=== PATIENT | female | born 1980 | race Caucasian/White ===

== ENCOUNTER 2024-11-29 14:03 | Outpatient (REF) | payer BC, SELFPAY ==
--- NOTE | 2024-11-29 14:09 | EMG_ITS ---
Chief complaint: Pain in the right shoulder area, may radiate down with paresthesias on right hand. Reason for referral: Evaluate for radiculopathy versus Carpal Tunnel Syndrome Referred by: Luís FARR Procedure done: Right upper extremity NCS/EMG Precautions and/or limitations: None The limb temperature was monitored continuously and remained between 32-36 degrees C during the performance of the NCS. Nerve Conduction Studies Anti Sensory Summary Table ?Stim Site NR Onset (ms) Norm Onset (ms) Peak (ms) Norm Peak (ms) O-P Amp (?V) Norm O-P Amp Site1 Site2 Delta-0 (ms) Dist (cm) Benjamin (m/s) Norm Benjamin (m/s) Right Median Anti Sensory (2nd Digit) Wrist ? 2.5 3.1 <3.6 59.6 >10 Wrist 2nd Digit 2.5 14.0 56 Right Ulnar Anti Sensory (5th Digit) Wrist ? 2.2 3.0 <3.7 43.2 >15.0 Wrist 5th Digit 2.2 14.0 64 Motor Summary Table ?Stim Site NR Onset (ms) Norm Onset (ms) O-P Amp (mV) Norm O-P Amp iAmp (mV) Amp (1st) (%) Site1 Site2 Delta-0 (ms) Dist (cm) Benjamin (m/s) Norm Benjamin (m/s) Right Median Motor (Abd Poll Brev) Wrist ? 3.2 <3.9 8.6 >4.5 10.0 100.0 Elbow Wrist 3.4 18.5 54 >45 Elbow ? 6.6 7.7 9.0 89.5 Right Ulnar Motor (Abd Dig Minimi) Wrist ? 2.8 <3.0 10.7 >5 12.1 100.0 B Elbow Wrist 2.8 17.5 63 >45 B Elbow ? 5.6 10.4 12.0 97.2 A Elbow B Elbow 1.3 10.0 77 >45 A Elbow ? 6.9 10.2 11.8 95.3 Comparison Summary Table ?Stim Site NR Peak (ms) Norm Peak (ms) P-T Amp (?V) Site1 Site2 Delta-P (ms) Norm Delta (ms) Right Median/Radial Dig I Comparison (Digit 1 - 10cm) Median ? 2.4 <2.9 76.6 Median Radial 0.1 Radial ? 2.5 <2.8 82.0 EMG ?Side Muscle Nerve Root Ins Act Fibs Psw Amp Dur Poly Recrt Int Pat Comment Right 1stDorInt Ulnar C8-T1 Nml Nml Nml Nml Nml 0 Nml Complete Right FlexCarRad Median C6-7 Nml Nml Nml Nml Nml 0 Nml Complete Right Biceps Musculocut C5-6 Nml Nml Nml Nml Nml 0 Nml Complete Right Triceps Radial C6-7-8 Nml Nml Nml Nml Nml 0 Nml Complete Right Deltoid Axillary C5-6 Nml Nml Nml Nml Nml 0 Nml Complete Paraspinal EMG ?Side Muscle Nerve Root Ins Act Fibs Psw Comment Right Cervical Upper Rami Nml Nml Nml Right Cervical Mid Rami Nml Nml Nml Right Cervical Lower Rami Nml Nml Nml FINDINGS: All motor and sensory nerves tested showed normal latencies, amplitudes and conduction velocities. Concentric needle EMG was performed in selected muscles of the right upper extremity and cervical paraspinals. Study did not reveal signs of electric abnormalities as shown in the table above. IMPRESSION: 1. This is a normal study. 2. There is no electrodiagnostic evidence for median neuropathy, ulnar neuropathy, brachial plexopathy, or cervical radiculopathy. Thank you for your kind referral. Mayela Cordon MD, ENA Board Certified, [place] Board [employer] Medicine and Rehabilitation (ABPMR) Board Certified, [place] Board of Electrodiagnostic Medicine (ABEM) CODIN [id number] MTDD
--- OUTSIDE RECORDS SUMMARY | 2024-11-29 17:48 | XMS_ITS | Clinical Summary ---
Author Organization [facility] Address [address] [address] Phone Care Team Providers Care Photographic Platemaker Name Role Phone AmyAni Londonosawyer Chapman DO Primary Car e Provider Medications montelukast (SINGULAIR) 10 mg tablet Take 10 mg by mouth nightly at bedtime. Active polyethylene glycol (MIRALAX) 17 gram packet Take 17 g by mouth daily. Active pyRIDostigmine (MESTINON) 60 mg tablet TAKE 0.5 TABLETS (30 MG TOTAL) BY MOUTH 2 (TWO) TIMES A DAY FOR 3 DAYS, THEN TAKE 1 TAB 3 TIMES A DAY BY MOUTH 270 tablet 1 10/20/2024 Active Encounters Date Type Department Care Team Description 10/20/2024 Refill [facility] Neurology at [address] [address] Michael Manning MD, PhD Medication Refill 10/09/2024 11:30 AM EDT Telemedicine [facility] Neurology at [address] [address] Michael Manning MD, PhD Idiopathic autonomic neuropathy (Primary Dx) from Last 3 Months Social History Tobacco Use Types Packs/Day Years Used Date Smoking Tobacco: Never Assessed Education Answer Date Recorded Are you interested in more education? Not on jewel e 07/10/2022 Are you concerned about learning? Not on file 07/10/2022 No 07/10/2022 No 07/10/2022 Digital Access Answer Date Recorded No 08/11/2022 No 08/11/2022 No 08/11/2022 Reliable internet access at home? Not on file 08/11/2022 Device with a working camera? Not on file Comments Unknown Sex and Gender Information Value Date Recorded Sex Assigned at Female 12/20/2019 10:45 AM EDT Legal Sex Female 12:53 PM EST Gender Identity Female 12/20/2019 10:45 AM EDT Sexual Orientation Straight 12/20/2019 10 :45 AM EDT Last Filed Vital Signs Vital Sign Reading Time Taken Comments Blood Pressure 110/72 02/08/2023 8:43 AM EST Pulse 80 02/08/2023 8:43 AM EST Temperature - - Respiratory Rate - - Oxygen Saturation - - Inhaled Oxygen Concentration - - Weight 72.6 kg (160 lb) 10/10/2018 1:17 PM EDT Height 160 cm (5' 3 ) 10/10/2018 1:17 PM EDT Body Mass Index 28.34 10/10/2018 1:17 PM EDT Plan of Treatment Health Maintenance Due Date Last Done Comments Adult Td,Tdap Booster 1982 DEPRESSION SCREENING 1994 SMOKING Hx and SMOKELESS TOBACCO SCREENING 05/25/1995 HEPATITIS C SCREENING 2000 HIV ONE-TIME SCREENING (18-65 YEARS) 2000 PAP SMEAR 05/25/2003 MAMMOGRAM 2022 INFLUENZA VACCINE (#1) 2024 , 11/27/2019, 11/14/2019, Additional history exists COVID-19 VACCINE ( season) 2024 11/13/2020, 03/27/2020, 03/25/2020, Additional history exists MENINGOCOCCAL VACCINES (ACWY) Aged Out 12/16/2011 No longer eligible based on patient's age to complete this topic HEPATITIS A VACCINES Aged Out No long er eligible based on patient's age to complete this topic HIB VACCINES Aged Out No longer eligi ble based on patient's age to complete this topic MENINGOCOCCAL VACCINES (B) Aged Out N o longer eligible based on patient's age to complete this topic PNEUMOCOCCAL VACCINES (0-49 years) Aged Out No longer eligible based on patient's age to complete this topic Medical Devices Not on file Insurance OUT OF STATE POS [facility] OUT [facility] POS BLUE CROSS OUT OF STATE POS BLUE CROSS OUT OF STATE [place] [address] BLUE CROSS OUT OF STATE POS BLUE CROSS OUT OF STATE POS Care Teams Photographic Platemaker Relationship Specialty Start Date End Date Rochelle Schmid DO PCP - General Internal Medicine 01/25/23 Additional Source Comments The information contained in this document represents components of the legal health record. It is not the complete legal health record.[facility]
--- OUTSIDE RECORDS SUMMARY | 2024-11-29 17:48 | XMS_ITS | Clinical Summary ---
Author Organization [employer] Address [address] [place] [address] [address] [place] [address] Care Team Providers Care Software Maintenance Engineer Name Role Phone Unavailable Primary Care Provider Unavailabl e Social History Tobacco Use Types Packs/Day Years Used Date Smoking Tobacco: Never Assessed Comments Unknown Sex and Gender Information Value Date Recorded Sex Assigned at Female 01/12/2022 10:18 AM EDT Legal Sex Female 10:18 AM EDT Gender Identity Female 01/12/2022 10:18 AM EDT Sexual Orientation Straight 01/12/2022 10 :18 AM EDT Last Filed Vital Signs Vital Sign Reading Time Taken Comments Blood Pressure 150/90 04/14/2019 12:01 AM EST Pulse 88 04/14/2019 12:01 AM EST Temperature - - Respiratory Rate - - Oxygen Saturation - - Inhaled Oxygen Concentration - - Weight 65.3 kg (144 lb) 04/14/2019 12:01 AM EST Height 160 cm (5' 3 ) 04/14/2019 12:01 AM EST Body Mass Index 25.51 04/14/2019 12:01 AM EST Plan of Treatment Health Maintenance Due Date Last Done Comments Depression Screening 1982 Disability Screening 1982 Alcohol/Substance Use Screening 1994 Tobacco Screening 1994 Family Planning (PISQ) 1997 HPV Vaccines (1 - 3-dose series) 1997 Hepatitis B Vaccines (1 of 3 - 19+ 3-dose series) 2001 DTaP/Tdap/Td Vaccines (2 - Td or Tdap) 12/17/2021 12/18/2011, 03/29/2007 Mammogram 2022 COVID-19 Vaccine ( season) 2024 11/13/2020, 03/27/2020, 02/28/2020 Influenza Vaccine (#1) 2024 , 11/14/2019, 11/22/2017, Additional history exists Cervical Cancer Screening 12/27/2028 HPV/Cotest 12/27/2028 12/28/2023 Pap Smear 12/27/2028 12/28/2023, 04/15/2021 Zoster Vaccines (1 of 2) 2032 RSV Patients and Patients Aged 60 years or older (1 - 1-dose 75+ series) 2057 Pneumococcal Vaccine: Pediatrics (0 to 5 Years) and At-Risk Patients (6 to 49) Years Aged Out 03/29/2007 No longer eligible based on patient's age to complete this topic Hepatitis A Vaccines Aged Out 09/14/2011 No long er eligible based on patient's age to complete this topic Meningococcal Vaccine Aged Out 12/16/2011 No ruth lizet eligible based on patient's age to complete this topic HIB Vaccines Aged Out No longer eligi ble based on patient's age to complete this topic IPV Vaccines Aged Out No longer eligi ble based on patient's age to complete this topic Meningococcal B Vaccine Aged Out No l onger eligible based on patient's age to complete this topic RSV under 20 months Aged Out No longe r eligible based on patient's age to complete this topic Rotavirus Vaccines Aged Out No longer eligible based on patient's age to complete this topic Procedures Procedure Name Priority Date/Time Associated Diagnosis Comments PAP/HPV Routine 12/28/2023 12:00 AM EDT from Last 3 Months or Most Recently Relevant to Health Maintenance Results * PAP/HPV (12/28/2023 12:00 AM EDT) Pap Smear 1. NILM 1. NILM HPV Not Detected Undetected, Indeterminat e, Quantitative , Not Detected us Historical Provider HEALTH MAINTENANCE Edited Result - Final from Last 3 Months or Most Recently Relevant to Health Maintenance
--- OUTSIDE RECORDS SUMMARY | 2024-11-29 17:48 | XMS_ITS | Encounter Summary ---
Author Organization [employer] Address [address] [facility] [address] [place] [address] Care Team Providers Care Real Estate Assessor Name Role Phone Unavailable Primary Care Provider Unavailabl e Encounter Details Date Type Department Care Team (Late st Contact Info) Description 02/24/2024 Orders Only [facility] MEDICINE [address] [place] [address] Mary Castillo Social History Tobacco Use Types Packs/Day Years Used Date Smoking Tobacco: Never Assessed Comments Unknown Sex and Gender Information Value Date Recorded Sex Assigned at Female 01/12/2022 10:18 AM EDT Legal Sex Female 10:18 AM EDT Gender Identity Female 01/12/2022 10:18 AM EDT Sexual Orientation Straight 01/12/2022 10 :18 AM EDT documented as of this encounter Plan of Treatment Not on file documented as of this encounter Procedures Procedure Name Priority Date/Time Associated Diagnosis Comments PAP/HPV Routine 12/28/2023 12:00 AM EDT documented in this encounter Results * HM PAP/HPV (12/28/2023 12:00 AM EDT) Pap Smear 1. NILM 1. NILM HPV Not Detected Undetected, Indeterminat e, Quantitative , Not Detected us Historical Provider HEALTH MAINTENANCE Edited Result - Final documented in this encounter Visit Diagnoses Not on filedocumented in this encounter
--- OUTSIDE RECORDS SUMMARY | 2024-11-29 17:48 | XMS_ITS | Encounter Summary ---
Author Organization [facility] Address [address] [place] [address] Phone Care Team Providers Care Onion Topper Name Role Phone NeetuvickyRochelle Londono DO Primary Care Pro vider Encounter Details Date Type Department Care Team (Late Contact Info) Description 11/06/2021 Documentation Only [facility] [address] [place] [phone] Gianna Benitez MD Social History Tobacco Use Types Packs/Day Years Used Date Smoking Tobacco: Never Smokeless Tobacco: Never Alcohol Use Standard Drinks/Week Comments Yes 0 (1 standard drink = 0.6 oz pure alcohol) Alcoholic Drinks/day: Occasional social drink Comments Unknown Sex and Gender Information Value Date Recorded Sex Assigned at Female 12/15/2020 7:06 AM EDT Legal Sex Female 4:51 PM EST Gender Identity Female 12/15/2020 7:06 AM EDT Sexual Orientation Not on file COVID-19 Exposure Response Date Recorded In the last 10 days, have yo u been in contact with someone who was confirmed or suspected to have Coronavirus/COVID-19? No / Unsure 10/22/2021 3:55 PM EDT documented as of this encounter Plan of Treatment Upcoming Encounters Date Type Department Care Team (Late Contact Info) Description 10/16/2025 10:00 AM EDT [facility] [address] [address] Reagan Armstrong MD [address] [phone] documented as of this encounter Visit Diagnoses Not on filedocumented in this encounter Care Teams Onion Topper Relationship Specialty Start Date End Date Rochelle Schmid DO [address] [place] [address] PCP - General Internal Medicine 05/13/21 documented as of this encounter
--- OUTSIDE RECORDS SUMMARY | 2024-11-29 17:48 | XMS_ITS | Clinical Summary ---
Author Organization [facility] Address [address] [address] Phone Care Team Providers Care Steam Boiler Fireman Name Role Phone Rochelle Schmid DO Primary Care Pro vider Allergies Active Allergy Reactions Criticality Noted Date Comments Bee Venom Anaphylaxis High 12/16/2020 Latex Itching,Swelling 12/16/2020 Penicillins Other (see comments) 04/30/2020 Tramadol Hives 04/30/2020 Medications EPINEPHrine (EPIPEN) 0.3 MG/0.3ML injection syringe if needed Active polyethylene glycol (GLYCOLAX) 17 GM/SCOOP powder Take 17 g by mouth 8 Active w/o A Vit-Fe Fum-FA (PRENATA PO) Take by mouth Act renan pyridoxine (VITAMIN B-6) 25 MG tablet Take 25 mg by mouth in the morning and 25 mg at noon and 25 mg in the evening. Active Doxylamine Succinate, Sleep, (UNISOM PO) Take by mouth every night Active labetalol (NORMODYNE) 200 MG tablet Take 1 tablet (200 mg total) by mouth in the morning and 1 tablet (200 mg total) at noon and 1 tablet (200 mg total) in the evening. 270 tablet 3 4 Active Additional Information Patient not taking.Reported on 10/16/2024 butalbital-acet aminophen-caffe ine (FIORICET, ESGIC) 50-325-40 MG per tablet TAKE 1 TABLET BY MOUTH TWICE A DAY NEEDED FOR HEADACHE 5 Active pyridostigmine (MESTINON) 60 MG tablet Take 60 mg by mouth in the morning and 60 mg in the evening and 60 mg before bedtime. Active Active Problems Problem Noted Date Diagnosed Date Non-rheumatic mitral regurgitation 03/16/2023 03/16/2023 Hypertension in , antepartum 12/15/2022 Other iron deficiency anemia 05/13/2021 Coronary arteriosclerosis 04/30/2020 Hypertension 04/30/2020 Supraventricular tachycardia 04/30/2020 Segmental autonomic dysfunction 01/25/2020 Comments Yes Resolved Problems Problem Noted Date Diagnosed Date Resolved Date Pre-existing hypertension co mplicating AND/OR reason for care during 03/16/2023 03/16/2023 024 Multigravida of advanced maternal age 0103/16/202304/202309/12/2023 Mild intermittent asthma 03/16/2023 03/16/2023 History of cardiac arrhythmia 03/16/2023 03/16/2023 09/12/2023 Electrocardiogram abnormal 03/16/2023 03/16/2023 0 09/12/2023 Disorder of the autonomic nervous system 03/16/2023 03/16/2023 09/12/2023 Preoperative cardiovascular examination 03/16/2023 0 03/16/2023 09/12/2023 Slow transit constipation 05/17/2021 FH: Stomach cancer 05/17/2021 Cervical radiculitis 05/08/2021 024 Neck pain 05/08/2021 09/12/2023 Asthma 12/16/2020 12/04/2021 Migraine 12/16/2020 12/04/2021 Insomnia 01/25/2020 12/04/2021 Anemia 01/25/2020 09/12/2023 Encounters Date Type Department Care Team Description 10/16/2024 11:40 AM EDT Office Visit [facility] [address] [address] Reagan Armstrong MD Hypertension (Primary Dx); Unspecified maternal hypertension, third trimester; Other supraventricular tachycardia (HCC) 10/05/2024 Office Communication [facility] [address] [address] Reagan Armstrong MD from Last 3 Months Immunizations Immunization Administration Dates Next Due Influenza TIV (IM) 11/22/2017 Influenza, Quadrivalent, With Preservative 11/13,11/14/2019 SARS-CoV-2, Unspecified 11/13/2020,03/27/2020, Family History Medical History Relation Comments Cancer Father prostate, brain, stomach Hypertension Father Dementia Paternal Grandmother Relation Status Comments Father Alive Mother Alive Paternal Grandmother Social History Tobacco Use Types Packs/Day Years Used Date Smoking Tobacco: Never Smokeless Tobacco: Never Tobacco Cessation:Counseling Given: Not Answered Alcohol Use Standard Drinks/Week Comments Yes 0 (1 standard drink = 0.6 oz pur e alcohol) Rare Comments Yes Sex and Gender Information Value Date Recorded Sex Assigned at Female 12/15/2020 7:06 AM EDT Legal Sex Female 4:51 PM EST Gender Identity Female 12/15/2020 7:06 AM EDT Sexual Orientation Not on file Last Filed Vital Signs Vital Sign Reading Time Taken Comments Blood Pressure 120/78 10/16/2024 11:50 AM EDT Pulse 74 10/16/2024 11:50 AM EDT Temperature - - Respiratory Rate - - Oxygen Saturation 98% 10/16/2024 11:50 AM EDT Inhaled Oxygen Concentration - - Weight 73.5 kg (162 lb) 10/16/2024 11:50 AM EDT Height 162.6 cm (5' 4 ) 09/13/2023 11:38 AM EDT Body Mass Index 27.81 09/13/2023 11:38 AM EDT Plan of Treatment Upcoming Encounters Date Type Department Care Team (Late st Contact Info) Description 10/16/2025 10:00 AM EDT Office Visit [facility] [address] [address] Reagan Armstrong MD [address] [address] Health Maintenance Due Date Last Done Comments Hepatitis B Vaccine (1 of 3 - 19+ 3-dose series) 2001 Pneumococcal Vaccine: Peds ( 0 to 5 Years) and At-Risk Patients (6 to 49 Years) (1 of 2 - PCV) 2001 Influenza Vaccine (#1) 2024 , 11/27/2019, 11/14/2019, Additional history exists Insurance [facility] Care Teams Steam Boiler Fireman Relationship Specialty Start Date End Date Rochelle Schmid DO [address] [place] [address] PCP - General Internal Medicine 05/13/21
--- OUTSIDE RECORDS SUMMARY | 2024-11-29 17:48 | XMS_ITS | Encounter Summary ---
Author Organization [facility] Address [address] [place] [address] Phone Care Team Providers Care Game Trapper Name Role Phone BrennenmarcusRochelle Byers DO Primary Care Pro vider Encounter Details Date Type Department Care Team (Late st Contact Info) Description 07/07/2021 Telephone [facility] [address] [place] [address] Gianna Benitez MD Social History Tobacco Use [...] Exposure Response Date Recorded In the last month, have you been in contact with someone who was confirmed or suspected to have Coronavirus / COVID-19? Unable to assess 07/10/2021 2:08 PM EDT documented as of this encounter Miscellaneous Notes * Telephone Encounter - Gianna Benitez MD - 07/08/2021 12:46 PM EDT Called and made th change to labet * Telephone Encounter - Deb Leiva - 07/08/2021 8:51 AM EDT See message below * Telephone Encounter - Geri Yu - 07/07/2021 2:31 PM EDT Pt called, she is trying to get and her crisis clinician would like her to switch to labetalol instead of hydralazine . Please advise Thank you documented in this encounter Plan of Treatment Upcoming Encounters Date Type Department Care Team (Late st Contact Info) Description 10/16/2025 10:00 AM EDT [facility] [address] [phone] Reagan Armstrong MD [address] [address] documented as of this encounter Visit Diagnoses Not on filedocumented in this encounter Care Teams Game Trapper Relationship Specialty Start Date End Date Rochelle Schmid DO [address] [place] [address] PCP - General Internal Medicine 05/13/21 documented as of this encounter
--- OUTSIDE RECORDS SUMMARY | 2024-11-29 17:48 | XMS_ITS | Patient Health Record ---
Author Organization [facility] Address [address] [place] [address] Care Team Providers Care Pattern Keeper Name Role Phone Chet Fields Primary Care Provider Unavail able Hayden Maria Unavailable [phone] Allergies Allergen (clinical drug ingredient) Drug/Non Drug Allergy documented on EMR Reaction Allergy Type Onset Date Status Penicillin Unknown Drug Allergy Active Latex Unknown Drug Allergy Active Reason For Referral No Information Medications Medication SIG (Take, Route, Frequency, Duration) Notes Start Date End Date Status Fioricet PRN Active Cryselle-28 0.3-30 MG-MCG 1 tablet Orally Once a day Active Cardizem LA 240 MG 1 tablet at the same time each day Orally Once a day Active Zofran PRN Active ZyrTEC Allergy 10 MG 1 tablet Orally Onc e a day Active vitamin D Active PriLOSEC OTC 20 MG 1 tablet Orally Once a day Not-Taking Singulair 10 MG 1 tablet Orally Once a day Active Losartan Potassium 50 MG 1 tablet Orally Once a day Active Social History Tobacco Use: Social History Observation Description Date Details (start date - stop date) Never Smoker NA - NA Tobacco Use/Smoking Question Answer Notes Are you a: nonsmoker Additional Findings: Tobacco Non-User Current no n-smoker Alcohol Screen Question Answer Notes Did you have a drink containing alcohol in the p ast year? No Points 0 Interpretation Negative Tobacco use other than smoking: Question Answer Notes Are you an other tobacco user? No Plan Of Treatment No Information Insurance Providers Payer Name Payer Address Payer Phone Subscriber Number Group Number Insured Name Patient Relationship to Insured Coverage Start Date Coverage End Date [facility] [address] [place] [address] [id number] Self - patient is the insured 9 Medical (General) History Medical History History ICD Code asthma Back,Hip,and Knee pain High blood pressure Chicken pox Headaches/Migraines chronic sinusitis Autonomic dysfunction Neuropathy Surgical History Surgery Date(Month/Year) laproscopy tonsillectomy
--- OUTSIDE RECORDS SUMMARY | 2024-11-29 17:48 | XMS_ITS | Encounter Summary ---
Author Organization [facility] Address [address] [place] [address] Phone Care Team Providers Care Cage Operator Name Role Phone Rochelle Schmid DO Primary Care Pro vider Encounter Details Date Type Department Care Team (Late st Contact Info) Description 08/18/2021 Telephone [facility] [address] [place] [address] Gianna Benitez MD Social History [...] AM EDT Sexual Orientation Not on file documented as of this encounter Miscellaneous Notes * Telephone Encounter - Geri Yu - 08/18/2021 9:36 AM EDT Pt called, she noticed her bp has been running high. When she started labetolol lizet bp has low around 104 and now its been around 150 165. She would like to speak with you for guidance Please call her back at [phone] Thank you documented in this encounter Plan of Treatment Upcoming Encounters Date Type Department Care Team (Late st Contact Info) Description 10/16/2025 10:00 AM EDT Office Visit [facility] [address] [phone] Reagan Armstrong MD [address] [address] documented as of this encounter Visit Diagnoses Not on filedocumented in this encounter Care Teams Cage Operator Relationship Specialty Start Date End Date Rochelle Schmid DO [address] [place] [address] PCP - General Internal Medicine 05/13/21 documented as of this encounter
--- OUTSIDE RECORDS SUMMARY | 2024-11-29 17:48 | XMS_ITS | Clinical Summary ---
Author Organization 175 [facility] Address [address] [place] [address] Phone Care Team Providers Care Ripening Room Hand Name Role Phone Parris Mcdonald DO Primary Care Provider Allergies Active Allergy Reactions Criticality Noted Date Comments Bee Venom Protein (Honey Bee) Anaphylaxis High 05/16 Latex Itching,Swelling 12/16/2020 Penicillins 01/25/2020 Tramadol 01/25/2020 Medications fluticasone furoate (Arnuity Ellipta) 100 mcg/actuation blister with device inhaler Inhale 100 mcg into the lungs daily for 90 days. This medication has inhaler steroid: Rinse mouth with water and expectorate after each dose to prevent oral/esophageal candidiasis or fungal infection. 11/30/19 24 Active montelukast sodium (MONTELUKAST ORAL) Take by mouth. Activ e labetaloL (NORMODYNE) 200 mg tablet Take 1 Tablet by mouth 3 times daily. 04/12/19 24 Active medroxyPROGEST ERone 150 mg/mL injection INJECT 1 MILLILITER (150 MG) BY INTRAMUSCULAR ROUTE EVERY 3 MONTHS FOR 90 DAYS 06/22/19 24 Active albuterol HFA (PROAIR HFA ; PROVENTIL HFA ; VENTOLIN HFA) 90 mcg/actuation inhaler INHALE 2 PUFFS INTO THE LUNGS EVERY 4 HOURS NEEDED FOR 30 DAYS 03/26/19 24 Active EPINEPHrine (EpiPen 2-Christian) 0.3 mg/0.3 mL injection if needed Active doxylamine (UNISOM) 25 mg tablet Take 25 mg by mouth at bedtime. Active no115/iron/fol ic acid ( 19 ORAL) Take by mouth daily. Active polyethylene glycol (PEG) 17 gram/dose oral powder Take by mouth. Act renan albuterol HFA (PROAIR HFA ; PROVENTIL HFA ; VENTOLIN HFA) 90 mcg/actuation inhalerIndicat ions:Mild persistent asthma, unspecified whether complicated Inhale 2 puffs by mouth every 6 (six) hours if needed for wheezing or shortness of breath. 3 each 3 02/18/20 24 2024 Active budesonide (Pulmicort Flexhaler) 90 mcg/actuation inhaler Inhale 2 puffs by mouth 2 (two) times a day. 3 each 3 05/17/19 25 2025 Active Additional Information Patient not taking.Reported on 08/25/2024 cyanocobalamin (VITAMIN B-12) 250 mcg tablet Take 1 tablet (250 mcg total) by mouth 1 (one) time each day. Active pyRIDostigmine (MESTINON) 60 mg tablet Take by mouth 4 (four) times a day. Active magnesium citrate solution Take by mouth 1 (one) time. Active mometasone HFA (Asmanex HFA) 100 mcg/actuation HFA aerosol inhaler inhalerIndicat ions:Mild persistent asthma, unspecified whether complicated Inhale 2 puffs by mouth 2 (two) times a day. 1 each 5 11/25/19 Active mometasone HFA (Asmanex HFA) 100 mcg/actuation HFA aerosol inhaler inhalerIndicat ions:Mild persistent asthma, unspecified whether complicated Inhale 2 puffs by mouth 2 (two) times a day. 3 each 1 08/23/19 25 2024 Discontinued mometasone HFA (Asmanex HFA) 100 mcg/actuation HFA aerosol inhaler inhalerIndicat ions:Mild persistent asthma, unspecified whether complicated Inhale 2 puffs by mouth 2 (two) times a day. 1 each 5 11/17/19 25 2024 Discontinued Active Problems Problem Noted Date Diagnosed Date Advanced maternal age in multigravida 04/20/2024 Asthma 04/20/2024 Migraine 04/20/2024 Neck pain 04/20/2024 Pre-existing hypertension during 04/20 Radiculitis of right cervical region 04/20/2024 Non-rheumatic mitral regurgitation 03/16/2023 Slow transit constipation 05/17/2021 Coronary arteriosclerosis 04/30/2020 Supraventricular tachycardia ([facility] V24) 04/30 Segmental autonomic dysfunction 01/25/2020 Hypertensive disorder 01/25/2020 Insomnia 01/25/2020 Absolute anemia 01/25/2020 Dystonia 09/20/2013 Peripheral neuropathy 03/09/2012 Dysautonomia ([facility] V24, [facility] V28) 06/03/19 12 Encounters Date Type Department Care Team Description 10/12/2024 2:15 PM EDT Office Visit Orthopedic Surgery [facility] [address] [facility] [address] [place] [phone] Tomer Maria, DPM Plantar fascial fibromatosis (Primary Dx) 10/05/2024 2:30 PM EDT Ancillary Procedure [facility] [address] [place] [phone] Leg swelling; HERNANDES (dyspnea on exertion) 09/18/2024 2:30 PM EDT Office Visit Orthopedic Surgery [facility] [address] [facility] [address] [place] [phone] Valerie Colon, PA Wrist tendonitis (Primary Dx) 09/06/2024 3:06 PM EDT - 09/06/2024 11:59 PM EDT Hospital Encounter [facility] MRI [address] [place] [phone] Chronic pain of right wrist Discharge Disposition: Home or Self Care from Last 3 Months Immunizations Name Administration Dates Next Due Influenza Quadravalent, MDCK , 0.5ml, preservative free (Flucelvax) 6mo and older 11/27/2019 Influenza Quadrivalent, 0.5m l, preservative free (Fluarix; FluLaval; Fluzone) ages 6mo and older (Afluria) 3yo and older 12/21/2018,12/09/2017 Influenza Quadrivalent, with preservative (Fluzone; Afluria) 6mo and older 11/13/2020,11/14/2019,01/04/2017 Influenza trivalent, with pr eservative (Fluzone; Afluria) 6mo and older 11/22/2017,01/03/2016,12/16/2011 Meningococcal MCV4P 12/16/2011 SARS-COV-2 (COVID-19) Vaccine, Unspecified 11/13,03/27/2020,02/28/2020 Tdap Tetanus diptheria acell ular pertussis (Boostrix; Adacel) 7yo and older 03/01/2023 Surgical History Surgery Date Site/Laterality Comments KNEE SURGERY PROCEDURE: HISTORICAL KNEE SURGERY; COMMENT: right knee TONSILLECTOMY ADENOIDECTOMY, BILATERAL MYRINGOTOMY AND TUBES PROCEDURE: NE TONSILLECTOMY & ADENOIDECTOMY <AGE 12 CARDIAC CATHETERIZATION PROCEDURE: HISTORICAL CARDIAC CATH COLONOSCOPY PROCEDURE: HISTORICAL COLONOSCOPY Medical History Medical History Date Comments Ingrown toenail DX:Ingrown toena il Asthma DX:Asthma Essential hypertension DX:Essent ial hypertension Irritable bowel syndrome DX:Irri table bowel syndrome Family History Medical History Relation Name Comments Hypertension Father Other: cancer Father Relation Name Status Comments Father Social History Tobacco Use Types Packs/Day Years Used Date Smoking Tobacco: Never Smokeless Tobacco: Never Alcohol Use Standard Drinks/Week Comments Yes 0 (1 standard drink = 0.6 oz pur e alcohol) Comments Unknown Sex and Gender Information Value Date Recorded Sex Assigned at Not on file Legal Sex Female 9:31 PM EDT Gender Identity Not on file Sexual Orientation Not on file Obstetrics History Last Filed Vital Signs Vital Sign Reading Time Taken Comments Blood Pressure 130/80 10/05/2024 2:51 PM EDT Pulse 66 02/18/2024 1:13 PM EST Temperature 36.3 C (97.3 F) 02/18/2024 1:13 PM EST Respiratory Rate 20 02/18/2024 1:13 PM EST Oxygen Saturation 100% 02/18/2024 1:13 PM EST Inhaled Oxygen Concentration - - Weight 72.1 kg (159 lb) 10/12/2024 2:38 PM EDT Height 160 cm (5' 2.99 ) 10/12/2024 2:38 PM EDT Body Mass Index 28.17 10/12/2024 2:38 PM EDT Plan of Treatment Health Maintenance Due Date Last Done Comments Hepatitis B Vaccines (1 of 3 - 19+ 3-dose series) 2001 Cervical Cancer Screening: Pap Smear 05/25/2003 Pneumococcal Vaccine: Pediatrics (0 to 5 Years) and At-Risk Patients (6 to 49 Years) (2 of 2 - PCV) 03/29/2008 03/29/2007 Cholesterol Screening (Lipid Panel) 08/01/2021 HIV Screening 08/01/2021 Hepatitis C Screening 08/01/2021 Social Influencers of Health Screening 08/01/2021 Breast Cancer Screening 07/15/2022 07/15/2020 Depression Screening 03/15/2024 COVID-19 Vaccine ( season) 2024 12/17/2020, 11/13/2020, 03/27/2020, Additional history exists Influenza Vaccine (#1) 2024 , 11/27/2019, 11/14/2019, Additional history exists Hypertension/CHF/CAD Annual BMP Blood Test 02/13/2025 02/14/2024 DTaP,Tdap,and Td Vaccines (4 - Td or Tdap) 03/01/2033 03/01/2023, 12/18/2011, 03/29/2007 Hepatitis A Vaccines Aged Out 09/14/2011 No long er eligible based on patient's age to complete this topic Meningococcal ACWY Vaccine Aged Out 12/16/2011 N o longer eligible based on patient's age to complete this topic HIB Vaccines Aged Out No longer eligi ble based on patient's age to complete this topic HPV Vaccines Aged Out No longer eligi ble based on patient's age to complete this topic IPV Vaccines Aged Out No longer eligi ble based on patient's age to complete this topic MMR Vaccines Aged Out No longer eligi ble based on patient's age to complete this topic Meningococcal B Vaccine Aged Out No l onger eligible based on patient's age to complete this topic RSV Immunization Patients Under 20 months Aged Out No longer eligible based on patient's age to complete this topic Varicella Vaccines Aged Out No longer eligible based on patient's age to complete this topic Procedures Procedure Name Priority Date/Time Associated Diagnosis Comments TRANSTHORACIC ECHOCARDIOGRAM (TTE) COMPLETE Routine 10/05/2024 2:52 PM EDT Leg swelling HERNANDES (dyspnea on exertion) NE INJECTION SINGLE TENDON SHEATH OR LIGAMENT APONEUROSIS Routine 09/18/2024 2:30 PM EDT Wrist tendonitis MR WRIST WO CONTRAST RIGHT Routine 09/06/2024 4:09 PM EDT Chronic pain of right wrist COMPREHENSIVE METABOLIC PANEL Routine 02/14/2024 3:41 PM EST Chronic fatigue PAT SCREENING DIGITAL Routine 07/15/2020 4:05 PM EDT Encounter for screening mammogram for malignant neoplasm of breast from Last 3 Months or Most Recently Relevant to Health Maintenance Results * (ABNORMAL) TRANSTHORACIC ECHOCARDIOGRAM (TTE) COMPLETE (10/05/2024 2:52 PM EDT) Left Atrium Minor [place] 5.0 cm CV PACS Left Atrium Major [place] 5.3 cm CV PACS LA Area Sys (A2C) 18 cm2 CV PACS LA Area Sys (A4C) 19 cm2 CV PACS LA Volume (BP) 51 mL CV PACS RA Area 16.2 cm2 CV PACS RA 2D Volume 41 mL CV PACS AV Mean Gradient 6 mmHg CV PACS Ao VTI 32.0 cm CV PACS AV Peak Benjamin 1.7 m/s CV PACS AV Peak Gradient 11 mmHg CV PACS AV Area Continuity Equation 2.7 cm2 CV PACS AV Area Peak Velocity 2.5 cm2 CV PACS Aortic Sinus Valsalva 3.2 cm CV PACS Ascending Aorta 3.1 cm CV PACS IVC Proximal 1.0 cm CV PACS IVSD 0.8 0.6 - 0.9 cm CV PACS LVIDD 4.5 3.8 - 5.2 cm CV PACS LVIDS 2.9 2.2 - 3.5 cm CV PACS LVOT Diameter 2.0 cm CV PACS LVOT Mean Grad 3 mmHg CV PACS LVOT Peak VTI 27.0 cm CV PACS LVOT Mean Benjamin 0.9 m/s CV PACS LVOT Peak Benjamin 1.3 m/s CV PACS LVOT Peak Gradient 7 mmHg CV PACS LVPWD 0.9 0.6 - 0.9 cm CV PACS MV E' Tissue Velocity Lateral 11 cm/s CV PACS MV E' Tissue Velocity Septal 9 cm/s CV PACS LVOT Area 3.1 cm2 CV PACS LVOT Stroke Volume 85 mL CV PACS E Wave Deceleration Time 215 119 - 242 ms CV PACS MV Peak A Benjamin 0.60 m/s CV PACS MV Peak E Benjamin 0.90 m/s CV PACS PV Acceleration Time 102 ms CV PACS PV Acceleration Time 102 ms CV PACS PV Peak Velocity 1.2 m/s CV PACS PV Peak Gradient 5 mmHg CV PACS RV Diastolic Basal Dimension 3.5 2.5 - 4.1 cm CV PACS RV S' 15 cm/s CV PACS TAPSE 24 mm CV PACS E/E' Ratio Septal 10 CV PACS E/E' Ratio Averaged 9 CV PACS LVOT Stroke Index 0 mL/m2 CV PACS Relative Wall Thickness ratio 0.38 0.22 - 0.42 CV PACS LVOT:AV VTI Index 0.84 CV PACS FS 36 % CV PACS LV Mass 2D 121 66 - 150 g CV PACS Ascending Aorta Index 1.77 cm/m2 CV PACS LVOT flow 283 mL/s CV PACS RA 2D Volume Index 23 15 - 27 mL/m2 CV PACS EMILY Index (VTI) 1.51 cm2/m2 CV PACS EMILY Index (Pk Benjamin) 1.43 cm2/m2 CV PACS LVIDD Index 2.57 cm/m2 CV PACS LVIDS Index 1.66 cm/m2 CV PACS AV Velocity Ratio 0.80 CV PACS E/A Ratio 1.5 0.8 - 2.0 CV PACS E/E' Ratio Lateral 8 CV PACS LA Volume Index (BP) 28 mL/m2 CV PACS LV Mass Index 2D 70 44 - 88 g/m2 CV PACS BSA 1.79 m2 CV PACS Est. RA Pressure 3 mmHg CV PACS LVOT Cardiac Output 0.0 L/min CV PACS LVOT Cardiac Index 4.1 L/min/m2 CV PACS RV Free Wall Peak S' 15 cm/s CV PACS RA Major [place] 5.2 cm CV PACS RA Major [place] Index 3.0(A) 2.2 - 2.8 cm/m2 CV PACS MV PHT 62 ms CV PACS AV Area 2D 2.5 cm2 CV PACS EMILY Index (2D) 1.43 cm2/m2 CV PACS Inferior Vena Cava Diameter At Expiration 1.0 cm CV PACS IVC Expiration Index 0.57 cm/m2 CV PACS AV Area Index 1.4 CV PACS TR Peak Velocity 2.00 m/s CV PACS Right Ventricular Peak Systolic Pressure 19 mmHg CV PACS TR Peak Gradient 16 mmHg CV PACS Anatomical Region Laterality Modality Ultrasound Narrative 10/17/2024 3:56 PM EDT 1. Normal biventricular size and systolic function. Normal left ventricular regional wall motion with an ejection fraction of 60 to 65%. 2. No hemodynamically significant valve disease. 3. Normal left ventricular diastolic function. Normal pulmonary artery systolic pressure. Technically adequate, 2D, M-mode, and Doppler echocardiogram without significant pathologic findings. Left Ventricle Left ventricle cavity size is normal. Wall thickness is normal. Systolic function is normal with an ejection fraction of 60-65%. There are no regional LV wall motion abnormalities. There is no diastolic dysfunction. Right Ventricle Right ventricle cavity appears normal. Systolic function is normal. Left Atrium Left atrium volume index is normal. Right Atrium Right atrium cavity is normal. IVC/SVC RA pressures is estimated to be 3 mmHg (IVC diameter <21 mm and decreases >50% during inspiration). Mitral Valve The leaflets exhibit normal excursion. There is trace regurgitation. There is no evidence of mitral valve stenosis. Tricuspid Valve The leaflets exhibit normal excursion. There is trace regurgitation. The right ventricular systolic pressure is normal. The RVSP is estimated at 19 mmHg. Aortic Valve The aortic valve is trileaflet. There is trace regurgitation. There is no evidence of aortic valve stenosis. Pulmonic Valve Visualized portions of the pulmonic valve appear normal. There is trace pulmonic valve regurgitation. Ascending Aorta The aorta appears normal in size. Pericardium Pericardium appears normal. Study Details Overall the study quality was adequate. Rochelle Schmid DO CV ECHO PROCEDURE S Final Result * NE INJECTION SINGLE TENDON SHEATH OR LIGAMENT APONEUROSIS (09/18/2024 2:30 PM EDT) Valerie Mckeon PA - 09/18/2024 2:30 PM EDT CHIKA Barker 09/18/2024 5:51 PM Hand / UE Inj/Asp: R extensor compartment 6 for tendonitis Indications: pain Details: 25 G needle, dorsal approach Medications: 4 mg dexAMETHasone 4 mg/mL; 0.5 mL lidocaine 1 % Informed Consent: Site: Ecu tendon sheath Laterality: Right Relevant images/test results available and reviewed: yes Health status cleared: Yes Procedure/treatment, purpose, treatment alternatives, risks/potential complications and benefits explained: yes Risk/complications/benefits details: Risks of infection, thinning of the skin and temporary skin discoloration discussed. Discussed risks of temporary increased pain after injection and swelling and mild redness at injection site for couple days. Explained occasionally cortisone injection can cause facial flushing temporarily. Benefits pain management. For postop injection pain ice, Tylenol and/or NSAIDs if patient can take Patient questions answered: yes Patient agrees, verbalizes understanding, and wants to proceed: yes Consent given by: Patient Pre-procedure timeout performed: yes us Valerie FARR IN CLINIC/BEDSIDE ORDERABLES Final Result * MR Wrist wo Contrast Right (09/06/2024 4:09 PM EDT) Anatomical Region Laterality Modality Upper Extremities, Wrist Right Magneti c Resonance 09/06/2024 4:36 PM EDT Impressions 09/06/2024 4:51 PM EDT ECU tendinopathy. Mild degenerative changes of the 1st carpometacarpal joint. Degenerative signal in the dorsal and volar radioulnar ligaments without a tear. Small amount of fluid in the distal radioulnar joint. -------- FINAL REPORT -------- Dictated By: Jason Stevenson Dictated Date: 09/06/2024 16:36 ET Assigned Physician: Jason Stevenson Reviewed and Electronically Signed By: Jason Stevenson Signed Date: 09/06/2024 16:51 ET Workstation ID: [id number] Transcribed By: Self Edit Transcribed Date: 09/06/2024 16:36 ET Narrative 09/06/2024 4:51 PM EDT PROCEDURE: MRI of the right wrist without intravenous contrast. HISTORY: Chronic right wrist pain evaluate TFCC, DRUJ scapholunate ligament. COMPARISON: Radiographs dated 06/05/2022. TECHNIQUE: Multiplanar multisequence MRI of the right wrist without intravenous contrast administration. FINDINGS: The articular disc of the triangle fibrocartilage complex is intact. There is mildly increased signal in the dorsal and volar radioulnar ligaments, but the ligaments appear intact. The scapholunate and lunotriquetral ligament are normal. Mild degenerative changes of the 1st carpometacarpal joint with a small focus of subchondral marrow signal of the bases of the 1st metacarpal. Alignment is normal. The flexor tendons are normal. There is ECU tendinopathy at the level of the proximal carpal row. No soft tissue mass or fluid collection. The regional neurovascular structures are normal. Procedure Note Jason Stevenson MD - 09/06/2024 PROCEDURE: MRI of the right wrist without intravenous contrast. HISTORY: Chronic right wrist pain evaluate TFCC, DRUJ scapholunateligament. COMPARISON: Radiographs dated 06/05/2022. TECHNIQUE: Multiplanar multisequence MRI of the right wrist withoutintravenous contrast administration. FINDINGS: The articular disc of the triangle fibrocartilage complex is intact.There is mildly increased signal in the dorsal and volar radioulnarligaments, but the ligaments appear intact. The scapholunate and lunotriquetral ligament are normal. Mild degenerative changes of the 1st carpometacarpal joint with a smallfocus of subchondral marrow signal of the bases of the 1st metacarpal.Alignment is normal. The flexor tendons are normal. There is ECU tendinopathy at the level ofthe proximal carpal row. No soft tissue mass or fluid collection. The regional neurovascular structures are normal. IMPRESSION: ECU tendinopathy. Mild degenerative changes of the 1st carpometacarpal joint. Degenerative signal in the dorsal and volar radioulnar ligaments without atear. Small amount of fluid in the distal radioulnar joint. -------- FINAL REPORT -------- Dictated By: Jason Stevenson Dictated Date: 09/06/2024 16:36 ET Assigned Physician: Jason Stevenson Reviewed and Electronically Signed By: Jason Stevenson Signed Date: 09/06/2024 16:51 ET Workstation ID: [id number] Transcribed By: Self Edit Transcribed Date: 09/06/2024 16:36 ET us Valerie FARR IMG MRI PROCEDURES Final Resu lt * (ABNORMAL) Comprehensive metabolic panel (02/14/2024 3:41 PM EST) Sodium 139 133 - 145 mmol/L LAB CHEMISTRY METHOD 02/14/2024 5:03 PM [facility] Potassium 4.0 3.5 - 5.5 mmol/L LAB CHEMISTRY METHOD 02/14/2024 5:03 PM [facility] Chloride 108 96 - 110 mmol/L LAB CHEMISTRY METHOD 02/14/2024 5:03 PM [facility] CO2 25 21 - 32 mmol/L LAB CHEMISTRY METHOD 02/14/2024 5:03 PM [facility] Anion Gap 6 3 - 11 LAB CHEMISTRY METHOD 02/14/2024 5:03 PM [facility] Glucose 91 70 - 100 mg/dL LAB CHEMISTRY METHOD 02/14/2024 5:03 PM [facility] BUN 19 5 - 25 mg/dL LAB CHEMISTRY METHOD 02/14/2024 5:03 PM [facility] Creatinine 0.75 0.50 - 1.10 mg/dL LAB CHEMISTRY METHOD 02/14/2024 5:03 PM [facility] eGFR 103 >=60 mL/min/1. 73m2 LAB CHEMISTRY METHOD 02/14/2024 5:03 PM [facility] Comment:Calculation based on the Chronic Kidney Disease Epidemiology Collaboration (CKD-EPI) equation refit without adjustment for race. BUN/Creatinine Ratio 25.3 LAB CHEMISTRY METHOD 02/14/2024 5:03 PM [facility] Calcium 9.3 8.5 - 10.5 mg/dL LAB CHEMISTRY METHOD 02/14/2024 5:03 PM [facility] AST (SGOT) 18 10 - 42 unit/L LAB CHEMISTRY METHOD 02/14/2024 5:03 PM [facility] ALT (SGPT) 32 10 - 60 unit/L LAB CHEMISTRY METHOD 02/14/2024 5:03 PM [facility] Alkaline Phosphatase 126(H) 42 - 121 unit/L LAB CHEMISTRY METHOD 02/14/2024 5:03 PM [facility] Total Protein 6.7 6.0 - 8.0 g/dL LAB CHEMISTRY METHOD 02/14/2024 5:03 PM [facility] Albumin 4.2 3.2 - 5.0 g/dL LAB CHEMISTRY METHOD 02/14/2024 5:03 PM [facility] Total Bilirubin 0.3 0.0 - 1.4 mg/dL LAB CHEMISTRY METHOD 02/14/2024 5:03 PM [facility] Blood Venous blood specimen / Unknown Venipuncture / Unknown 02/14/2024 3:41 PM EST 02/14/2024 4:07 PM EST us Maira Garcia MD LAB BLOOD ORDERABLES Final Res ult [facility] [address] [place] [address], * PAT SCREENING DIGITAL (07/15/2020 4:05 PM EDT) Anatomical Region Laterality Modality Mammography 07/15/2020 2:27 PM EDT Narrative 07/15/2020 4:05 PM EDT [facility] Diagnostic Imaging Department [address] [place] [address] Patient: HERMELINDA STOKES /Age/Sex: 1980 - 40 - F Unit#: [id number] Location/Status: SPDIMAM/REG CLI Mnemonic/Ordering Site: [facility] Ordering Physician: PARRIS MCDONALD DO [facility] [place] - 07/15/20 - 150 EXAM: [facility] [place] EXAM DATE AND TIME: 07/15/2020 3:12 PM HISTORY: Screening. COMPARISON: Diagnostic mammogram of the right breast 10/10/14. No prior left breast imaging. TECHNIQUE: CC and MLO views of both breasts were obtained using full field digital mammography. Bilateral digital breast tomosynthesis was performed in the MLO projection. Computer aided detection with the [employer] 7.2-H was employed. TISSUE DENSITY: d. The breasts are extremely dense, which lowers the sensitivity of mammography. FINDINGS: A 2 cm round asymmetry is seen in the inferior left breast, MLO view only, expected to lie at 7-8 o'clock, posterior depth. There is an additional 2 cm partially imaged rounded asymmetry in the posterior 5-6 o'clock area of the left breast. A full 90 degree lateral view and CC tomosynthesis views of the left breast are recommended for further assessment. No dominant mass or asymmetry is seen in the right breast. Few benign-appearing microcalcifications are present. No architectural distortion is seen. The skin and vascularity are unremarkable. IMPRESSION: 1. Left breast asymmetries, for which additional views are recommended. The patient will be called back. 2. No mammographic evidence of malignancy is seen in the right breast. BI-RADS: Category 0: Incomplete - Need Additional Imaging Evaluation RECOMMENDATION(S): 1: Special mammographic view(s) needed LEFT [id number], [id number], [id number] Dictating Physician: ALYSON CHUN MD Electronically Signed by: ALYSON CHUN MD Dic Date/Time: 07/15/20 1603 Sign date/Time: 07/15/20 1605 Procedure Note Alyson Chun MD - 03/03/2022 [facility] Diagnostic Imaging Department [address] [place], [place] [phone] Patient: HERMELINDA STOKES /Age/Sex: 1980 - 40 - F Unit#: [id number] Location/Status: [facility] CLI Mnemonic/Ordering Site: [facility] Ordering Physician: PARRIS MCDONALD DO [facility] - 07/15/20 - 1509 EXAM: [facility] [place] EXAM DATE AND TIME: 07/15/2020 3:12 PM HISTORY: Screening. COMPARISON: Diagnostic mammogram of the right breast 10/10/14. No priorleft breast imaging. TECHNIQUE: CC and MLO views of both breasts were obtained using fullfield digital mammography. Bilateral digital breast tomosynthesis was performedin the MLO projection. Computer aided detection with the [employer] 7[employer]2-[place] employed. TISSUE DENSITY: d. The breasts are extremely dense, which lowers the sensitivity of mammography. FINDINGS: A 2 cm round asymmetry is seen in the inferior left breast, MLO viewonly, expected to lie at 7-8 o'clock, posterior depth. There is an additional 2cm partially imaged rounded asymmetry in the posterior 5-6 o'clock area ofthe left breast. A full 90 degree lateral view and CC tomosynthesis views of theleft breast are recommended for further assessment. No dominant mass or asymmetry is seen in the right breast. Fewbenign-appearing microcalcifications are present. No architectural distortion is seen. Theskin and vascularity are unremarkable. IMPRESSION: 1. Left breast asymmetries, for which additional views are recommended.The patient will be called back. 2. No mammographic evidence of malignancy is seen in the right breast. BI-RADS: Category 0: Incomplete - Need Additional Imaging Evaluation RECOMMENDATION(S): 1: Special mammographic view(s) needed LEFT 91120, [id number], [id number] Dictating Physician: ALYSON CHUN MD Electronically Signed by: ALYSON CHUN MD Dic Date/Time: 07/15/20 1603 Sign date/Time: 07/15/20 1605 Parris Mcdonald DO IMG BI PROCEDURES Final Res ult from Last 3 Months or Most Recently Relevant to Health Maintenance Insurance [facility] Care Teams Ripening Room Hand Relationship Specialty Start Date End Date Parris Mcdonald DO [address] [id number] PCP - General Internal Medicine 02/08/24
--- OUTSIDE RECORDS SUMMARY | 2024-11-29 17:48 | XMS_ITS | Encounter Summary ---
Author Organization [facility] Address [address] [place] [address] Phone Care Team Providers Care Termination Clerk Name Role Phone Altagraciadavidrachele Rochelle Primary Care Pro vider Encounter Details Date Type Department Care Team (Late Contact Info) Description 07/05/2020 Orders Only [facility] [address] [place] [id number] Provider, MD Pj Social History Tobacco Use Types Packs/Day Years [...] on file documented as of this encounter Plan of Treatment Upcoming Encounters Date Type Department Care Team (Late st Contact Info) Description 10/16/2025 10:00 AM EDT Office Visit [facility] [address] [facility] [address] [place] [address] Reagan Armstrong MD [address] [facility] [address] [place] [address] documented as of this encounter Procedures Procedure Name Priority Date/Time Associated Diagnosis Comments EXT RESULT ENTRY Routine 06/04/2020 documented in this encounter Results * EXT RESULT ENTRY (06/04/2020) us Historical Provider LAB BLOOD ORDERABLES Amisha l Result documented in this encounter Visit Diagnoses Not on filedocumented in this encounter Care Teams Termination Clerk Relationship Specialty Start Date End Date Rochelle Schmid DO [address] [place] [address] PCP - General Internal Medicine 05/13/21 documented as of this encounter
== END 2024-11-29 14:04 | disposition home or self-care (01) ==
LOC: HO.NEURO 14:03
PROVIDERS: PCP Internal Medicine
DX: R20.0 Anesthesia of skin (principal); R20.2 Paresthesia of skin
CPT/HCPCS: 95886; 95909

== ENCOUNTER → 2024-11-29 14:09 | Outpatient (BNV) | payer BC, SELFPAY | PROVIDERS: PCP Internal Medicine; Visit Provider Physical Medicine & Rehabilitation | DX: R20.0 Anesthesia of skin (principal) | CPT/HCPCS: 95886; 95909 ==